=== PATIENT | female | born 1975 | race Caucasian/White ===

== ENCOUNTER 2018-03-07 13:43 | Emergency (ER) | payer OTHER ==
[2018-03-07] MEDS ORDERED: ONDANSETRON 4 MG/2 ML VIAL IVP ONE (14:12)
[2018-03-07] MEDS ORDERED: NS 1,000 ML IV ONE (14:12)
--- NOTE | 2018-03-07 14:20 | EDPHY ---
H & P Stated Complaint: pt. states was doing abd exercises,felt a tear to rlq 1hr [employer] - Personal History LMP (Females 10-55): 8-14 Days Ago Current Tetanus Diphtheria and Acellular Pertussis (TDAP): Unsure - Medical/Surgical History Hx Asthma: No Hx Chronic Respiratory Disease: No Hx Diabetes: No Hx Cardiac Disease: No Hx Renal Disease: No Hx Cirrhosis: No Hx Alcoholism: No Hx HIV/AIDS: No Hx Splenectomy or Spleen Trauma: No Other PMH: MEd [id number]-herniated disc. Surg-none - Social History Smoking Status: Never smoked Time Seen by Provider: 03/07/18 13:52 HPI/ROS: Chief Complaint: Abdominal pain HPI: 42-year-old woman was doing [employer] exercises this afternoon when she felt a tearing in her abdomen when she was doing leg pull-ups. Pain came on suddenly in her right lower quadrant and has persisted. Pain is about a 6/10. She states that was a tearing sensation. No nausea or vomiting. No fevers or chills. She was feeling normal up until this point. Does not have a history of similar episodes in the past. Last menstrual cycle was 3 days ago and normal. No history of ovarian cyst. No abdominal surgeries in the past. ROS: 10 point Review of Systems is negative except as noted in the HPI. PMH: L5-S1 disc herniation Social History: No smoking, occasional alcohol, no recreational drug use Family History: non-contributory Physical Exam: Gen: Awake, Alert, No Distress HEENT: Nose: no rhinorrhea Eyes: PERRLA, EOMI Mouth: Moist mucosa Neck: Supple, no JVD Chest: nontender, lungs clear to auscultation Heart: S1, S2 normal, no murmur Abd: Soft, no tenderness at McBurney's point, no adnexal tenderness, she does have significant abdominal wall tenderness at Hesselbach's triangle, does have voluntary guarding Back: no CVA tenderness, no midline tenderness Ext: no edema, non-tender Skin: no rash Neuro: CN II-XII intact, Sensation grossly intact, Strength 5/5 in bilateral upper and lower extremities (Bronson Vanessa) Constitutional: Initial Vital Signs Temperature (C) 36.9 C 03/07/18 13:52 Heart Rate 51 L 03/07/18 13:52 Respiratory Rate 16 06/07/18 13:52 Blood Pressure 102/70 03/07/18 13:52 O2 Sat (%) 96 03/07/18 13:52 O2 Delivery Mode Room Air Allergies/Adverse Reactions: No Known Allergies Allergy (Verified 03/07/18 13:52) Home Medications: Medication Instructions Recorded Hydrocodone/APAP 5/325 [[place] 1 - 2 tab PO Q4H PRN #10 tab 03/07/18 5/325] Medical Decision Making - Diagnostics Imaging Results: Imaging Impressions Abdomen CT 03/07/18 15:28 Impression: 1. Imaging findings compatible with a partial tear of the right rectus abdominis muscle below the umbilicus, with perimuscular fluid. 2. Prominent adnexal vessels on the left, correlate clinically for possible pelvic congestion syndrome. Results called to Dr. Mango Freitas at 4:10 p.m. ED Course/Re-evaluation: 42-year-old woman presenting with right lower quadrant pain while doing exercises. She has tenderness in the right lower quadrant that has so backs triangle. No CVA tenderness at McBurney's point but she is quite uncomfortable. No palpable hernias on examination. Plan will be to check blood work, urinalysis, urine test. Will perform CT scan of the abdomen pelvis. Comprehensive metabolic panel is unremarkable. Still awaiting and CT scan results. Patient signed out to Dr. Freitas pending studies and re- evaluation. (Bronson Vanessa) [id number]: Patient was signed over to me at 3:00 p.m. Shift change. She is pending CT scan. Her urinalysis, urine are unremarkable. The CT scan abdomen pelvis with IV contrast shows a normal appendix however does show a right rectus abdominal musculature tear the very small hematoma. This is the most likely cause of her pain. Please see additional detail from Radiology dictation. CT scan was called to me by Dr. Roa. 1816: Patient is resting comfortably in no acute distress, abdomen at this time is soft nontender. No peritoneal signs she is feeling better after IV fluids and pain medicine. Discussed her CT scan results with her with the tear of the rectus sheath muscle. I recommend no core activities or abdominal wall musculature activities for the next month. Recommend icing her abdomen. Additionally will give her very limited supply of [place] for pain control. Additionally she understands return emergency room if she develops worsening abdominal pain fever vomiting. (Mango Freitas) - Data Points Laboratory Results: Laboratory Results 03/07/18 14:20 03/07/18 03/07/18 14:32 14:20 WBC 9.06 10^3/uL 10^3/uL (3.80-9.50) RBC 4.28 10^6/uL 10^6/uL (4.18-5.33) Hgb 13.5 g/dL g/dL (12.6-16.3) Hct 40.9 % % (38.0-47.0) MCV 95.6 fL fL (81.5-99.8) MCH 31.5 pg pg (27.9-34.1) MCHC 33.0 g/dL g/dL (32.4-36.7) RDW 12.4 % % (11.5-15.2) Plt Count 250 10^3/uL 10^3/uL (150-400) MPV 11.2 fL fL (8.7-11.7) Neut % (Auto) 79.7 % H % (39.3-74.2) Lymph % (Auto) 12.4 % L % (15.0-45.0) Branch % (Auto) 5.8 % % (4.5-13.0) Eos % (Auto) 1.0 % % (0.6-7.6) Baso % (Auto) 0.7 % % (0.3-1.7) Nucleat RBC Rel Count 0.0 % % (0.0-0.2) Absolute Neuts (auto) 7.22 10^3/uL H 10^3/uL (1.70-6.50) Absolute Lymphs (auto) 1.12 10^3/uL 10^3/uL (1.00-3.00) Absolute Monos (auto) 0.53 10^3/uL 10^3/uL (0.30-0.80) Absolute Eos (auto) 0.09 10^3/uL 10^3/uL (0.03-0.40) Absolute Basos (auto) 0.06 10^3/uL 10^3/uL (0.02-0.10) Absolute Nucleated RBC 0.00 10^3/uL 10^3/uL (0-0.01) Immature Gran % 0.4 % % (0.0-1.1) Immature Gran # 0.04 10^3/uL 10^3/uL (0.00-0.10) POC Sodium 137 mEq/L mEq/L (135-145) POC Potassium 4.5 mEq/L mEq/L (3.3-5.0) POC Chloride 102.0 mEq/L mEq/L (97-110) POC Total CO2 27 mEq/L mEq/L (22-31) POC BUN 15 mg/dL mg/dL (7-23) POC Creatinine 0.8 mg/dL mg/dL (0.6-1.0) POC Glucose 115 mg/dL H mg/dL (70-100) POC Calcium 9.1 mg/dL mg/dL (8.5-10.4) POC Total Bilirubin 1.5 mg/dL H mg/dL (0.1-1.4) POC AST 68 IU/L H IU/L (14-46) POC ALT 42 IU/L IU/L (9-52) POC Alk Phosphatase 48 IU/L IU/L (38-126) POC Total Protein 7.0 g/dL g/dL (6.3-8.2) POC Albumin 3.9 g/dL g/dL (3.5-5.0) Medications Given: Discontinued Medications Sodium Chloride (Ns) 1,000 mls @ 0 mls/hr IV ONCE ONE; Wide Open PRN Reason: Protocol Stop: 03/07/18 14:13 Last Admin: 03/07/18 14:26 Dose: 1,000 mls Morphine Sulfate (Morphine) 4 mg IVP ONCE ONE Stop: 03/07/18 14:13 Last Admin: 03/07/18 14:28 Dose: Not Given Morphine Sulfate (Morphine) 4 mg IVP EDNOW ONE Stop: 03/07/18 14:29 Last Admin: 03/07/18 14:31 Dose: 4 mg Ondansetron HCl (Zofran) 4 mg IVP EDNOW ONE Stop: 03/07/18 14:13 Last Admin: 03/07/18 14:29 Dose: 4 mg Point of Care Test Results: Chemistry 03/07/18 14:32 POC Sodium 137 mEq/L mEq/L (135-145) POC Potassium 4.5 mEq/L mEq/L (3.3-5.0) POC Chloride 102.0 mEq/L mEq/L (97-110) POC Total CO2 27 mEq/L mEq/L (22-31) POC BUN 15 mg/dL mg/dL (7-23) POC Creatinine 0.8 mg/dL mg/dL (0.6-1.0) POC Glucose 115 mg/dL H mg/dL (70-100) POC Calcium 9.1 mg/dL mg/dL (8.5-10.4) POC Total Bilirubin 1.5 mg/dL H mg/dL (0.1-1.4) POC AST 68 IU/L H IU/L (14-46) POC ALT 42 IU/L IU/L (9-52) POC Alk Phosphatase 48 IU/L IU/L (38-126) POC Total Protein 7.0 g/dL g/dL (6.3-8.2) POC Albumin 3.9 g/dL g/dL (3.5-5.0) Urine Collection Date 03/07/18 Collection Time 15:00 HCG Results Negative Urine Dip Collection Date 03/07/18 Collection Time 15:00 Specific [place] (1.002-1.030) 1.020 PH (5.0-7.5) 7.5 Leukocytes (Negative) Negative Nitrites (Negative) Negative Protein (Negative) Negative Glucose (Negative) Negative Ketones (Negative) Negative Urobilnogen (0.2-1.0 EU) 0.2 Bilirubin (Negative) Negative Blood (Negative) Negative Departure - Departure Disposition: Home, Routine, Self-Care Clinical Impression: Abdominal muscle strain Qualifiers: Encounter type: initial encounter Qualified Code(s): S39.011A - Strain of muscle, fascia and tendon of abdomen, initial encounter Condition: Good Instructions: Muscle Strain (ED) Additional Instructions: 1. You may ice her abdomen. 2. No vigorous activity involving her abdominal wall muscles for the next month. 3. Return emergency room if there is worsening abdominal pain fever vomiting. Referrals: NONE *PRIMARY CARE P,. [Unknown] - As per Instructions Prescriptions: Hydrocodone/APAP 5/325 [[place] 5/325] 1 - 2 tab PO Q4H PRN #10 tab PRN Reason: Pain, Moderate
[2018-03-07] MEDS ORDERED: IOPAMIDOL (ISOVUE-300) 100 ML BTL ONE (15:35)
[2018-03-07 15:43] LABS: PLATELET COUNT 250 10^3/uL (150-400)
[2018-03-07 17:29] VITALS: BP 112/69
== END 2018-03-07 17:27 | disposition home or self-care (01) ==
LOC: CED 13:43
DX: S10.0XXA Contusion of throat, initial encounter (principal); W23.1XXA Caught, crushed, jammed, or pinched between stationary objects, initial encounter; F17.200 Nicotine dependence, unspecified, uncomplicated
CPT/HCPCS: 74177-PO; 80053-PO; 96374; J2270; J2405; Q9967